=== PATIENT | female | born 1995 | race Two or more races ===

== ENCOUNTER 2025-06-16 00:21 | Emergency (ER) | payer MEDICAID, OTHER ==
[~2025-06-16] VITALS: Ht 160 cm; Wt 78.2 kg
[2025-06-16] MEDS: ONDANSETRON HCL 4 MG/2 ML VIAL IV ONE (01:45)
[2025-06-16] MEDS: SODIUM CHLORIDE 0.9% 2,000 ML IV ONE (01:45)
[2025-06-16 02:08] LABS: Hematocrit 42.6 % (36.0-46.0); Hemoglobin 14.7 g/dL (12.2-16.2); Mean Corpuscular Hemoglobin 29.4 pg (28.0-32.0); Mean Corpuscular Volume 85.5 fL (80.0-100.0); Nucleated Red Blood Cells % 0.0 %
[2025-06-16 02:19] LABS: Chloride 106 mmol/L (98-107); Potassium 3.5 mmol/L (3.5-5.1); Sodium 138 mmol/L (136-145)
[2025-06-16 02:20] LABS: Anion Gap 10 (5-15); Calcium 9.7 mg/dL (8.7-10.4); Carbon Dioxide 22 mmol/L (20-31)
[2025-06-16 02:25] LABS: BUN/Creatinine Ratio 13.6 (10.0-20.0); Blood Urea Nitrogen 9 mg/dL (9-23); Glucose 97 mg/dL (74-106)
--- NOTE | 2025-06-16 02:32 | ED.PDOC ---
History of Present Illness HPI Comments 29 y/o F with current approximate 7 week presents with c/c nausea, vomiting, poor appetite, and intermittent abdominal cramping. Patient reports no significant past medical history ([id number]). 2x week history of nausea and intermittent cramping, with recent development of poor appetite and vomiting 3x days ago and today. Denies any vaginal bleeding, bloody or bilious vomitus, diarrhea, constipation, urinary symptoms, fever, chills, or further associated symptoms. Chief Complaint: Nausea/Vomiting Time Seen by MD: :30 Reviewed Notes: Nurses Notes, Medications, Allergies Allergies: Coded Allergies: Sulfamethoxazole w/Trimethoprim (Verified Allergy, Unknown, 06/16/25) Information Source: Patient Mode of Arrival: Ambulatory Severity: Moderate Timing: Weeks Duration: Since onset Prehospital treatment: None Past Medical History PAST MEDICAL HISTORY: Denies Surgical History: Denies all surgeries 2 Para 1 Family History Family History: Unknown Social History Smoker: Non-Smoker Alcohol: Denies ETOH Use Drugs: Denies Drug Use Lives In: Home All Other Systems: Reviewed and Negative (Comprehensive review of systems are negative unless otherwise stated in HPI) Physical Exam General Appearance: No Apparent Distress HEENT: Other (Pupils and face symmetric. Moist mucous membranes.) Neck: Full Range of Motion, Normal Inspection Respiratory: Lungs Clear, No Accessory Muscle Use, No Respiratory Distress, Normal Breath Sounds Cardiovascular: No Edema, No JVD, Regular Rate/Rhythm Breast Exam: Deferred Gastrointestinal: Non Tender, Soft Genitalia: Deferred Pelvic: Deferred Rectal: Deferred Extremities: Normal inspection, Normal range of motion, Non-tender, No pedal edema Neurologic: Alert (Oriented x4), Normal Affect, Normal Mood, Other (Ambulatory without difficulty) Cerebellar Function: NOT DONE Reflexes: NOT DONE Skin: Dry, Normal Color, Warm Lymphatic: NOT DONE Was a procedure done? Was a procedure done?: No Differential Dx Considerations may include: hyperemesis gravidarum, dehydration, electrolyte imbalance, viral syndrome, UTI, gastritis, among others X-Ray, Labs, Meds, VS Vital Signs Date Time Temp Pulse Resp B/P (MAP) Pulse Ox O2 Delivery O2 Flow Rate FiO2 06/16/25 04:09 98.7 65 14 109/58 (75) 98 98.7 06/16/25 00:22 98.7 78 16 123/87 98 98.7 Lab Test 8/4/25 01:48 Range/Units White Blood Count 11.0 H 4.4-10.8 10^3/uL Red Blood Count 4.98 4.0-5.20 10^6/uL Hemoglobin 14.7 12.2-16.2 g/dL Hematocrit 42.6 36.0-46.0 % Mean Corpuscular Volume 85.5 80.0-100.0 fL Mean Corpuscular Hemoglobin 29.4 28.0-32.0 pg Mean Corpuscular Hemoglobin Concent 34.4 32.0-36.0 g/dL Red Cell Distribution Width 13.1 11.8-14.3 % Platelet Count 212 140-450 10^3/uL Mean Platelet Volume 9.0 6.9-10.8 fL Neutrophils (%) (Auto) 71.9 37.0-80.0 % Lymphocytes (%) (Auto) 20.6 10.0-50.0 % Monocytes (%) (Auto) 6.6 0.0-12.0 % Eosinophils (%) (Auto) 0.5 0.0-7.0 % Basophils (%) (Auto) 0.4 0.0-2.0 % Neutrophils # (Auto) 7.9 1.6-8.6 10 ^3/uL Lymphocytes # (Auto) 2.3 0.4-5.4 10 ^3/uL Monocytes # (Auto) 0.7 0-1.3 10 ^3/uL Eosinophils # (Auto) 0.1 0-0.8 10 ^3/uL Basophils # (Auto) 0 0-0.2 10 ^3/uL Nucleated Red Blood Cells 0.0 % Sodium Level 138 136-145 mmol/L Potassium Level 3.5 3.5-5.1 mmol/L Chloride Level 106 98-107 mmol/L Carbon Dioxide Level 22 20-31 mmol/L Anion Gap 10 5-15 Blood Urea Nitrogen 9 9-23 mg/dL Creatinine 0.66 0.550-1.02 mg/dL Glomerular Filtration Rate Calc 121 >90 mL/min BUN/Creatinine Ratio 13.6 10.0-20.0 Serum Glucose 97 74-106 mg/dL Calcium Level 9.7 8.7-10.4 mg/dL Beta HCG, Quantitative 62728.2 H 1.5-4.2 mIU/mL X-Ray, Labs, Meds, VS Comment 29-year-old female with current 7 week complaining of nausea and vomiting Vitals unremarkable Exam unremarkable Rhythm strip independently interpreted by me: Sinus rhythm, rate 78, no ectopy. CBC remarkable for WBC 11, basic metabolic panel normal, serum quantitative hCG 21377.2 Patient treated with the following in the ED: 2 L 0.9 normal saline IV bolus, Zofran 4 mg IV On re-evaluation, patient states nausea has improved. Vitals were stable. Patient appears stable for discharge with close outpatient follow-up with her OBGYN. I will cover the patient for possible UTI, as she failed to provide a urine sample. Rx Nathalie, Aicha echevarria Time of 1ST Reevaluation: 02:00 Reevaluation 1ST: Unchanged Patient Education/Counseling: Diagnosis, Treatment, Need For Follow Up Family Education/Counseling: No Family Present SEPSIS Sepsis Screen Date sepsis recognized/suspect: Jun 16, 2025 Time Sepsis recognized/suspect: 0022 Recent Procedure: No On Antibiotic Therapy: No Respiratory Rate >20: No Heart Rate >90: No Temp<36 C (96.8 F) or >38.3 C: No SBP <90 or MAP <65 mmHG: No New Acute Mental Status Change: No Is the patient on CPAP, BIPAP,: No Physician Orders Urinalysis (06/16/25 01:35) Ob Trans Vaginal Us (06/16/25 01:35) Vital Signs Date Time Temp Pulse Resp B/P (MAP) Pulse Ox O2 Delivery O2 Flow Rate FiO2 06/16/25 04:09 98.7 65 14 109/58 (75) 98 98.7 06/16/25 00:22 98.7 78 16 123/87 98 98.7 Laboratory Tests Test 06/16/25 01:48 White Blood Count 11.0 10^3/uL (4.4-10.8) H Departure 1 Departure Time of Disposition: 04:52 Impression: Primary Impression: Hyperemesis gravidarum Disposition: 01 HOME / SELF CARE / HOMELESS Condition: Stable Additional Instructions: Your blood tests were unremarkable. You did not provide a urine sample, so I have prescribed antibiotics to cover a possible urinary tract infection. I have also prescribed medication for nausea and vomiting. Follow-up with your OBGYN in 1-2 days. Return to ER for persistent or worsening symptoms. e-Prescriptions Doxylamine-Pyridoxine (DICLEGIS) 1 Tab Tab 1 TAB OR HS PRN, #30 TAB Prn nausea/vomiting Prov: GRECIA LOCKWOOD MD 06/16/25 Metoclopramide Hcl (Reglan) 10 Mg Tab 10 MG PO QID PRN, #30 TAB Prn nausea/vomiting Prov: GRECIA LOCKWOOD MD 06/16/25 Nitrofurantoin Monohydrate Mac (Macrobid) 100 Mg Cap 100 MG PO BID for 7 Days, #14 CAP Prov: GRECIA LOCKWOOD MD 06/16/25 Discharged With: Relative Critical Care Note Critical Care Time?: No Stability Stability form required: No Heart Score Heart Score: Heart Score Response (Comments) Value History N/A 0 EKG N/A 0 Age N/A 0 Risk Factors N/A 0 Troponin N/A 0 Total 0 I personally scribed for GRECIA LOCKWOOD MD ([email or web address]) on 06/16/25 at 02:32. Electronically submitted by Alonzo Martin ([email or web address]). GRECIA LOCKWOOD MD Jun 16, 2025 02:32
[2025-06-16] MEDS ORDERED: DOXY10TA OR (04:55)
[2025-06-16] MEDS ORDERED: METO-281 PO (04:55)
[2025-06-16] MEDS ORDERED: NITR-87 PO (04:55)
[2025-06-16 05:13] LABS: Urine Protein, UAD 2+ (Negative)
[2025-06-16 06:39] VITALS: BP 115/58; PULSE 58; RESP 20; TEMP 98.7; O2SAT 99
== END 2025-06-16 06:39 | disposition home or self-care (01) ==
LOC: ER 00:21
DX: O21.0 Mild hyperemesis gravidarum (principal); O26.891 Other specified pregnancy related conditions, first trimester; R10.2 Pelvic and perineal pain; Z3A.01 Less than 8 weeks gestation of pregnancy; Z88.1 Allergy status to other antibiotic agents
CPT/HCPCS: 36415; 80048; 81001; 84702; 85025; 96361; 96374; 99283; J2405; J7030

== ENCOUNTER 2025-07-05 23:47 | Emergency (ER) | payer MEDICAID ==
[~2025-07-05] VITALS: Ht 160 cm; Wt 79.0 kg
[~2025-07-05 23:47] MED LIST: DOXY10TA OR; METO-281 PO; NITR-87 PO
--- NOTE | 2025-07-06 00:32 | ED.PDOC ---
OPHTHALMOLOGIST RETINA SPECIALIST HPI Comments 29-year-old female who came to ER for nausea. Patient is a G 2p1, approximately 11 weeks . Seen here last June 15, diagnosed with hyperemesis gravidarum, sent home with Diclegis. Patient states she never felt any better still feeling nauseated with a bitter metallic taste at her mouth. Denies any vaginal bleeding. Patient has not yet seen any OB automobile rental clerk regarding these Chief Complaint: Nausea/Vomiting Time Seen by MD: 00:32 Reviewed Notes: Nurses Notes Allergies: Coded Allergies: Sulfamethoxazole w/Trimethoprim (Verified Allergy, Unknown, 06/16/25) Home Meds Active Scripts Doxylamine-Pyridoxine (DICLEGIS) 1 Tab Tab, 1 TAB OR HS PRN, #30 TAB Prn nausea/vomiting Prov:GRECIA LOCKWOOD MD 06/16/25 Metoclopramide Hcl (Reglan) 10 Mg Tab, 10 MG PO QID PRN, #30 TAB Prn nausea/vomiting Prov:GRECIA LOCKWOOD MD 06/16/25 Nitrofurantoin Monohydrate Mac (Macrobid) 100 Mg Cap, 100 MG PO BID for 7 Days, #14 CAP Prov:GRECIA LOCKWOOD MD 06/16/25 Information Source: Patient Mode of Arrival: Ambulatory Past Medical History PAST MEDICAL HISTORY: Denies Surgical History: Denies all surgeries 2 Para 1 LMP April 15 Family History Family History: Reviewed,noncontributory to illness Social History Smoker: Non-Smoker Alcohol: Denies ETOH Use Drugs: Denies Drug Use Lives In: Home Constitutional: denies: chills, diaphoresis, fatigue, fever, malaise, sweats, weakness, others EENTM: denies: blurred vision, double vision, ear bleeding, ear discharge, ear drainage, ear pain, ear ringing, eye pain, eye redness, hearing loss, mouth pain, mouth swelling, nasal discharge, nose bleeding, nose congestion, nose pain, photophobia, tearing, throat pain, throat swelling, voice changes, others Respiratory: denies: cough, hemoptysis, orthopnea, SOB at rest, shortness of breath, SOB with excertion, stridor, wheezing, others Cardiovascular: denies: chest pain, dizzy spells, diaphoresis, Dyspnea on exertion, edema, irregular heart beat, left arm pain, lightheadedness, palpitations, PND, syncope, others Gastrointestinal: reports: nausea; denies: abdomen distended, abdominal pain, blood streaked bowels, constipated, diarrhea, dysphagia, difficulty swallowing, hematemesis, melena, poor appetite, poor fluid intake, rectal bleeding, rectal pain, vomiting, others Genitourinary: denies: abnormal vagina bleeding, burning, dyspareunia, dysuria, flank pain, frequency, hematuria, incontinence, pain, , vagina discharge, urgency, others Neurological: denies: dizziness, fainting, headache, left sided numbness, left sided weakness, numbness, paresthesia, pre-existing deficit, right sided numbness, right sided weakness, seizure, speech problems, tingling, tremors, weakness, others Musculoskeletal: denies: back pain, gout, joint pain, joint swelling, muscle pain, muscle stiffness, neck pain, others Integumetry: denies: bruises, change in color, change in hair/nails, dryness, laceration, lesions, lumps, rash, wounds, others Allergic/Immunocompromised: denies: Difficulty Healing, Frequent Infections, Hives, Itching, others Hematologic/Lymphatic: denies: anemia, blood clots, easy bleeding, easy bruising, swollen glands, others Endocrine: denies: excessive hunger, excessive sweating, excessive thirst, excessive urination, flushing, intolerance to cold, intolerance to heat, unexplained weight gain, unexplained weight loss, others Psychiatric: denies: anxiety, bipolar disorder, depression, hopeless, panic disorder, schizophrenia, sleepless, suicidal, others Physical Exam General Appearance: No Apparent Distress, Normal HEENT: Normal ENT Inspection, Pharynx Normal, TMs Normal Neck: Full Range of Motion, Non-Tender, Normal, Normal Inspection Respiratory: Chest Non-Tender, Lungs Clear, No Accessory Muscle Use, No Respiratory Distress, Normal Breath Sounds Cardiovascular: No Edema, No JVD, No Murmur, No Gallop, Normal Peripheral Pulses, Regular Rate/Rhythm Breast Exam: Deferred Gastrointestinal: No Organomegaly, Non Tender, No Pulsatile Mass, Normal Bowel Sounds, Soft Genitalia: Deferred Pelvic: Deferred Rectal: Deferred Extremities: No calf tenderness, Normal capillary refill, Normal inspection, Normal range of motion, Non-tender, No pedal edema Musculoskeletal : Apperance: Normal Neurologic: Alert, water plant pump operator II-XII nml as Tested, No Motor Deficits, Normal Affect, Normal Mood, No Sensory Deficits Cerebellar Function: Normal Reflexes: Normal Skin: Dry, Normal Color, Warm Lymphatic: No Adenopathy Was a procedure done? Was a procedure done?: No Differential Diagnosis (DIRECTOR OF QUANTITATIVE RESEARCH) Vaginal Bleeding: UTI Vaginal Discharge: X-Ray, Labs, Meds, VS Vital Signs Date Time Temp Pulse Resp B/P (MAP) Pulse Ox O2 Delivery O2 Flow Rate FiO2 07/05/25 23:49 98.1 92 18 124/84 100 98.1 Lab Test 07/06/25 00:30 Range/Units Beta HCG, Quantitative 62600.1 H 1.5-4.2 mIU/mL PROCEDURE(s): OB4US - OB ULTRASOUND COMP LESS 14WKS REASON: r/o molar, multiparity ORDER NUMBER(s): [id number], ACCESSION NUMBER(s): [id number] INDICATION: r/o molar, multiparity TECHNIQUE: Multiple real-time grayscale transabdominal sonographic images along with color and duplex Doppler of the uterus and ovaries were obtained. COMPARISON: None FINDINGS: The uterus measures 11.8 x 6.8 x 7.5 cm. Intrauterine gestational sac is present. pole measures 3.2 cm, corresponding to 10 weeks 1 day. heart rate measures 172 beats per minut e. Yolk sac is present. No evidence of perigestational fluid. Right ovary measures 2.9 x 1.4 x 2.6 cm with normal Doppler color flow. Left ovary measures 2.5 x 2 x 2.1 cm with normal Doppler color flow. No visualized ascites. IMPRESSION: 1. Single intrauterine gestation with cardiac activity measuring at 10 weeks 1 day (KRISTAL 01/30/2026). Size measures 1 week 4 days less than dates; consider redating. 2. No evidence of gestational complication. Time of 1ST Reevaluation: 00:26 Reevaluation 1ST: Unchanged Patient Education/Counseling: Diagnosis, Treatment, Prognosis, Need For Follow Up Family Education/Counseling: No Family Present Departure 1 Departure Time of Disposition: 03:20 Impression: Primary Impression: GERD (gastroesophageal reflux disease) Qualified Codes: K21.9 - Gastro-esophageal reflux disease without esophagitis Additional Impression: Hyperemesis gravidarum Disposition: HOME / SELF CARE / HOMELESS Condition: Good e-Prescriptions Doxylamine-Pyridoxine (DICLEGIS) 1 Tab Tab 1 TAB OR DAILY for 30 Days, #30 TAB Prov: DANIELLE ZAVALA MD 07/06/25 Discharged With: Self Critical Care Note Critical Care Time?: No Stability Stability form required: No Heart Score Heart Score: Heart Score Response (Comments) Value History N/A 0 EKG N/A 0 Age N/A 0 Risk Factors N/A 0 Troponin N/A 0 Total 0 I personally scribed for DANIELLE ZAVALA MD ([email or web address]) on 07/06/25 at 00:32. Electronically submitted by Severino Stafford ([email or web address]). I personally scribed for DANIELLE ZAVALA MD ([email or web address]) on 07/06/25 at 02:05. Electro nically submitted by Severino Stafford ([email or web address]). DANIELLE ZAVALA MD Jul 06, 2025 00:32
--- NOTE | 2025-07-06 01:44 | DVH ---
INDICATION: r/o molar, multiparity TECHNIQUE: Multiple real-time grayscale transabdominal sonographic images along with color and duplex Doppler of the uterus and ovaries were obtained. COMPARISON: None FINDINGS: The uterus measures 11.8 x 6.8 x 7.5 cm. Intrauterine gestational sac is present. pole measures 3.2 cm, corresponding to 10 weeks 1 day. heart rate measures 172 beats per minute. Yolk sac is present. No evidence of perigestational fluid. Right ovary measures 2.9 x 1.4 x 2.6 cm with normal Doppler color flow. Left ovary measures 2.5 x 2 x 2.1 cm with normal Doppler color flow. No visualized ascites. IMPRESSION: 1. Single intrauterine gestation with cardiac activity measuring at 10 weeks 1 day (KRISTAL 01/30/2026). Size measures 1 week 4 days less than dates; consider redating. 2. No evidence of gestational complication.
[2025-07-06] MEDS ORDERED: DOXY10TA OR (03:22)
[2025-07-06 04:44] VITALS: BP 106/76; PULSE 69; RESP 18; TEMP 98.2; O2SAT 98
== END 2025-07-06 04:45 | disposition home or self-care (01) ==
LOC: ER 23:49
DX: O21.0 Mild hyperemesis gravidarum (principal); O20.0 Threatened abortion; O99.611 Diseases of the digestive system complicating pregnancy, first trimester; K21.9 Gastro-esophageal reflux disease without esophagitis; Z3A.11 11 weeks gestation of pregnancy; Z88.2 Allergy status to sulfonamides; Z88.1 Allergy status to other antibiotic agents
CPT/HCPCS: 36415; 76801; 84702; 86901